=== PATIENT | female | born 1980 | race Caucasian/White ===

== ENCOUNTER 2023-05-16 21:55 | Emergency (ER) | payer OTHER ==
[~2023-05-16] VITALS: Ht 157.5 cm; Wt 85.7 kg
[~2023-05-16 21:55] MED LIST: IBUP-2213 PO; MONT-72 PO; OMEP40EC24 PO; PRON INH
[2023-05-16 21:59] VITALS: BP 119/87; PULSE 65; RESP 13; TEMP 97.3; O2SAT 100
[2023-05-16 22:59] LABS: BASOPHILS # (AUTO) 0.1 K/uL (0.00-0.22); BASOPHILS % (AUTO) 0.9 % (0.0-2.0); EOSINOPHILS # (AUTO) 0.1 K/uL (0-0.4); HEMATOCRIT 35.6 % (36-48); HEMOGLOBIN 11.3 g/dL (12.0-16.0); LYMPHOCYTES # (AUTO) 2.9 K/uL (2.5-16.5); LYMPHOCYTES % (AUTO) 38.7 % (20.5-51.1); MEAN CORPUSCULAR HEMOGLOBIN 25 pg (27-31); MEAN CORPUSCULAR HGB CONC 32 g/dL (33-37); MEAN CORPUSCULAR VOLUME 77.6 fL (80-94); MONOCYTES # (AUTO) 0.5 K/uL (0.8-1.0); MONOCYTES % (AUTO) 7.2 % (1.7-9.3); NEUTROPHILS # (AUTO) 3.9 K/uL (1.8-7.7); NEUTROPHILS % (AUTO) 51.2 % (42.2-75.2); PLATELET COUNT (AUTO) 219 K/uL (140-450); RED BLOOD CELL COUNT(AUTO) 4.58 MIL/uL (4.20-5.40); RED CELL DISTRIBUTION WIDTH 16.8 % (11.6-13.7); WHITE BLOOD COUNT (AUTO) 7.5 K/uL (4.8-10.8)
[2023-05-16 23:27] LABS: ANION GAP 10.5 (8-16); CALCIUM 8.6 mg/dL (8.5-10.1); CARBON DIOXIDE 28.9 mmol/L (21-32); CHLORIDE 103 mmol/L (98-107); CREATININE 0.8 mg/dL (0.6-1.3); GFR ARICAN-AMERICAN 101 mL/min (>90); GFR NON ARICAN-AMERICAN 84 mL/min (>90); GLUCOSE 98 mg/dL (74-106); POTASSIUM 3.4 mmol/L (3.5-5.1); SODIUM SERUM 139 mmol/L (136-145); UREA NITROGEN, BLOOD 12 mg/dL (7-18)
[2023-05-16 23:28] LABS: ALANINE AMINOTRANSFERASE 26 U/L (12-78); ALBUMIN 3.9 g/dL (3.4-5.0); ALKALINE PHOSPHATASE 105 U/L (50-136); ASPARTATE AMINOTRANSFERASE 19 U/L (15-37)
[2023-05-16 23:29] LABS: LIPASE 56 U/L (73-393)
[2023-05-16 23:49] LABS: TOTAL BILIRUBIN 0.2 mg/dL (0.0-1.0); TOTAL PROTEIN, SERUM 7.5 g/dL (6.4-8.2)
[2023-05-17] MEDS ORDERED: LORazepam 1 MG TAB PO ONE (02:05)
[2023-05-17] MEDS ORDERED: KETOROLAC 30 MG/ML VIAL IM ONE (02:05)
[2023-05-17] MEDS ORDERED: ALUMINUM HYD/MAG/SIMETHICONE 30 ML UDC PO ONE (02:05)
[2023-05-17] MEDS ORDERED: ATI.5 PO (02:44)
[2023-05-17] MEDS ORDERED: MAG-27 PO (02:44)
== END 2023-05-17 03:06 | disposition home or self-care (01) ==
LOC: MED 21:55
DX: R10.13 Epigastric pain (principal); F41.9 Anxiety disorder, unspecified; R42 Dizziness and giddiness; J45.909 Unspecified asthma, uncomplicated; K21.9 Gastro-esophageal reflux disease without esophagitis; R53.1 Weakness; Z88.0 Allergy status to penicillin; Z98.890 Other specified postprocedural states; Z79.899 Other long term (current) drug therapy
CPT/HCPCS: 36415; 71045; 80053; 81025; 83690; 84484; 85025; 93005; 96372; 99285; J1885